=== PATIENT | male | born 1970 | race Caucasian/White ===

== ENCOUNTER 2020-08-21 15:11 | Emergency (ER) | payer OTHER ==
--- NOTE | 2020-08-21 15:42 | PDOC ---
History of Present Illness - General Chief Complaint: Pain Stated Complaint: ABDOMINAL STRAIN Time Seen by Provider: 08/21/20 15:36 History Source: Patient Exam Limitations: No Limitations - History of Present Illness Initial Comments: 08/21/20 15:37 49 yo male h/o renal ca, partial nephrectomy 10 yrs ago, htn borderline diabetes, chronic back pain depression here today c/o abd pain. pt states he was at physical therapy and was straining, stretching his back. felt bulge left umbilicus. since then has been hurting. no bulge currently. has not had a bowel. movement in several days. nausea, no vomiting. no f/c no other complaints. pain constatnt. Past History - Medical History Allergies/Adverse Reactions: Allergies Allergy/AdvReac Type Severity Reaction Status Date / Time codeine Allergy Mild Itching Verified 02/05/20 18:02 Home Medications: Ambulatory Orders Amlodipine Besylate [Norvasc] 10 mg PO DAILY 11/25/11 Omeprazole 40 mg PO DAILY 11/25/11 Rosuvastatin Calcium [Crestor] 10 mg PO DAILY #0 tablet 11/27/11 Aspirin 81 mg PO DAILY 02/05/20 Metoprolol Succinate [Toprol XL -] 100 mg PO DAILY 02/05/20 Mirtazapine 15 mg PO HS 02/05/20 Ciprofloxacin [Cipro -] 500 mg PO Q12H #28 tablet 08/21/20 metroNIDAZOLE [Flagyl -] 500 mg PO TID 14 Days #42 tablet 08/21/20 GI Disorders: Yes (ACID REFLUX) HTN: Yes - Psycho-Social/Smoking History Smoking Status: No Smoking History: Never smoked Have you smoked in the past 12 months: No Number of Cigarettes Smoked Daily: 0 Review of Systems - Review of Systems Constitutional: No: Chills, Diaphoresis, Fever HEENTM: No: Eye Pain, Blurred Vision, Tearing Respiratory: No: Cough, Orthopnea, Shortness of Breath Cardiac (ROS): No: Chest Pain, Edema ABD/GI: Yes: Nausea. No: Constipated, Diarrhea : No: Burning, Dysuria, Discharge Musculoskeletal: No: Back Pain, Gout, Joint Pain Neurological: No: Headache, Numbness, Paresthesia All Other Systems: Reviewed and Negative *Physical Exam - Physical Exam 08/21/20 15:43 awake alert lungs clear bilat heart rrr no mrg abd soft obese. left periumbilical area. mild ttp. no palp hernia border. no rebound no guarding. ext wwp. no edema. nuero alert oriented x 3. ED Treatment Course - LABORATORY CBC & Chemistry Diagram: 08/21/20 16:00 08/21/20 15:46 Medical Decision Making - Medical Decision Making 08/21/20 15:44 49 yo male with h/o renal ca, s/p partial nephrectomy, htn depression here with llq pain, bulging. differential hernia, fat hernia, diverticulitis, constipation. plan ct a/p without iv contrast due to h/o renal ca, labs ivf. 08/21/20 19:26 Patient with noted hepatic cysts will recommend GI follow-up also noted to have concerns for mild diverticulitis no visualized hernia. Will discharge patient with Cipro and Flagyl and referral for GI follow-up for both his hepatic cyst and possible diverticulitis is consistent with his exam due to the concern for bulging we also be given referral for follow-up with general surgery given the number for Dr. Hampton Discharge - Discharge Information Problems reviewed: Yes Clinical Impression/Diagnosis: Hepatic cyst, Diverticulitis Condition: Improved Disposition: HOME - Admission No - Additional Discharge Information Prescriptions: Ciprofloxacin [Cipro -] 500 mg PO Q12H #28 tablet - Follow up/Referral Referrals: Donell Lord MD [Staff Physician] - Fredi Hampton MD [Staff Physician] - - Patient Discharge Instructions Patient Printed Discharge Instructions: Diverticulitis Additional Instructions: Your CAT scan today shows 2 cysts on your liver. These are likely benign howev er will require follow-up with your karate instructor. If you do not have a karate instructor can follow-up with Dr. Lord see referral information and call to schedule an appointment to be seen within 1 to 2 weeks. You should also note that your CAT scan shows concerns for possible diverticulitis and infection in your colon this could explain your pain. For this you should take ciprofloxacin 500 mg twice daily for 14 days. In addition you should take Flagyl 500 mg 3 times daily for 14 days. You should not drink alcohol while taking Flagyl as it can cause serious adverse reaction just of nausea and vomiting. Return for fevers chills vomiting or worsening pain or any other concerns. Your CAT scan today does not show a hernia however if you have recurrent bulging or concerns then you should follow-up with a primary care surgeon see referral for Dr. Hampton and call to schedule a follow-up appointment. In addition you should follow-up with your primary care doctor please call to be seen within 1 to 2 weeks - Post Discharge Activity
[2020-08-21] MEDS ORDERED: ACETAMINOPHEN 1000 MG/100 ML VIAL (NON FORMULARY) IVPB ONE (15:46)
[2020-08-21] MEDS ORDERED: SODIUM CHLORIDE 0.9% 1000 ML INFUS.BAG IV ONE (15:46)
[2020-08-21 15:53] VITALS: TEMP 98.4; BMI 35.9
[2020-08-21 16:13] LABS: BASO % 4.4 % (0-2.0); EOS % 3.4 % (0-4.5); HEMATOCRIT 43.9 % (35.4-49); HEMOGLOBIN 14.4 GM/dl (11.7-16.9); MCHC 32.8 g/dl (32.0-35.9); MEAN CELL VOLUME 79.1 fl (80-96); MEAN PLT VOLUME 8.2 fl (7.5-11.1); MONO % 10.8 % (3.8-10.2); NEUT % 63.4 % (42.8-82.8); PLATELET COUNT 334 K/MM3 (134-434); RBC 5.55 M/mm3 (4.00-5.60); RDW 16.6 % (11.9-15.9); WHITE BLOOD COUNT 7.1 K/mm3 (4.0-10.8)
[2020-08-21 16:41] LABS: BILIRUBIN,TOTAL 0.6 mg/dl (0.2-1); CALCIUM 8.8 mg/dl (8.5-10); POTASSIUM 4.5 mmol/L (3.5-5.1)
[2020-08-21 17:29] VITALS: BP 150/106; PULSE 71
[2020-08-21] MEDS ORDERED: ACETAMINOPHEN INJECTION 100 ML IVPB ONE (18:28)
[2020-08-21] MEDS ORDERED: ACETAMINOPHEN 500 MG TABLET (FP) ONE (19:18)
[2020-08-21] MEDS ORDERED: CIPROFLOXACIN 500 MG TABLET (RESTRICTED TO ID) PO ONE (19:31)
[2020-08-21] MEDS ORDERED: metroNIDAZOLE 500 MG TABLET PO ONE (19:31)
[2020-08-21] MEDS ORDERED: metroNIDAZOLE 250 MG TABLET ONE (19:33)
[2020-08-21] MEDS ORDERED: CIPROFLOXACIN 250 MG TABLET (RESTRICTED TO ID) PO ONE (19:33)
[2020-08-21] MEDS ORDERED: ACETAMINOPHEN 500 MG TABLET (FP) PO ONE (19:39)
== END 2020-08-21 19:41 | disposition home or self-care (01) ==
LOC: FER 15:11
DX: Q44.6 Cystic disease of liver (principal); K57.00 Diverticulitis of small intestine with perforation and abscess without bleeding
CPT/HCPCS: 36415; 74176-TC; 80053; 81003; 83605; 85025; 99284-25

== ENCOUNTER 2020-08-28 10:49 | Emergency (ER) | payer OTHER ==
[2020-08-28 10:55] VITALS: TEMP 98.4; BMI 35.9
--- OUTSIDE RECORDS SUMMARY | 2020-08-28 11:03 | XMS ---
:1970 Author Organization [facility] Care Team Providers Name Role Phone [facility] Unavailable Unavailable MD GENNA Unavailable Unavailable Danyel Unavailable [phone] RENATO RACHEL Unavailable Unavailable ED STAFF PHYSICIAN Unavailable Unavailable Silvino MAGNETIC PROSPECTING OPERATOR, MAGNETIC PROSPECTING OPERATOR Unavailable [phone] Silvino MAGNETIC PROSPECTING OPERATOR, MAGNETIC PROSPECTING OPERATOR Unavailable [phone] MD PILLO Unavailable Unavailable ALTON PELLETIER Unavailable Unavailable Елена-Pollock Unavailable [phone] Елена-Pollock Unavailable [phone] Lorin GOVEA Unavailable Unavailable LON BRIONES Unavailable Unavailable MD ADAM Unavailable Unavailable SILVINO Martinez Unavailable Unavailable MD NOLA Unavailable Unavailable JES Unavailable Unavailable JIMBO MS/ATR-BC Unavailable Unavailable Renato Unavailable [phone] Renato Unavailable [phone] Re-disclosure Warning The records that you are about to access may contain information from federally- assisted alcohol or drug abuse programs. If such information is present, then the following federally mandated warning applies: This information has been disclosed to you from records protected by federal confidentiality rules (42 CFR part 2). The federal rules prohibit you from making any further disclosure of this information unless further disclosure is expressly permitted by the written consent of the person to whom it pertains or as otherwise permitted by 42 CFR part 2. A general authorization for the release of medical or other information is NOT sufficient for this purpose. The Federal rules restrict any use of the information to criminally investigate or prosecute any alcohol or drug abuse patient.The records that you are about to access may contain highly sensitive health information, the redisclosure of which is protected by Article 27-F of the [facility] Public Health law. If you continue you may haveaccess to information: Regarding HIV / AIDS; Provided by facilities licensed or operated by the [facility] Office of Mental Health; or Provided by the [facility] Office for People With Developmental Disabilities. If such information is present, then the following [facility] mandated warning applies: This information has been disclosed to you from confidential records which are protected by state law. State law prohibits you from making any further disclosure of this information without the specific written consent of the person to whom it pertains, or as otherwise permitted by law. Any unauthorized further disclosure in violation of state law may result in a fine or snf sentence or both. A general authorization for the release of medical or other information is NOT sufficient authorization for further disclosure. Encounters Encounter Providers Location Date Indications Data Source(s ) Outpatient Attender: [address] 08/21/2020 [facility] ([facility] 04:21:35 PM [facility] EDT [facility]) Patient admitted. Attender: YOSVANY [place] [facility] 07/05/2020 04:07:00 NEXTGEN ([facility] EDT - 07/05/2020 [facility] 04:07:00 PM EDT Center) Outpatient Attender: CN9 06/17/2020 11:46:24 G SI ([facility]) Patient admitted. OutpatientOFFICE/OUTPATIENT Attender: YOSVANY Mental 06/06/2020 [facility] VISIT, EST [facility] 05:10:00 PM ([facility] 06/06/2020 Medical 05:10:00 PM Center) EDT Outpatient Attender: STV 05/23/2020 [facility] 09:[facility]:00 AM Nancy DASAdmitter: [facility] Outpatient Attender: CNR9 05/17/2020 [facility] 09:45:50 AM ([facility] e) Patient admitted. OutpatientOFFICE/OUTPATIENT Attender: MAGNETIC PROSPECTING OPERATOR Mental 05/10/2020 NEXTGEN VISIT, FÉLIX Schultzig Silvino MAGNETIC PROSPECTING OPERATOR Health 04:13:00 PM ([facility] EDT - [place] 05/10/2020 Medical 04:13:00 PM Center) EDT Outpatient Attender: JAY STDavis 05/07/2020 [facility] WASSERMANAdmit 07:05:00 [facility] ter: [facility] EDT - [facility] 06/02/2020 04:22:00 PM EDT Patient discharged. Outpatient Attender: LEILA [facility] 04/26/2020 09:42:00 AM [facility] REIDAdmitter: MARC EDT - 05/22/2020 [facility] 04:32:00 PM EDT Patient discharged. Attender: YOSVANY [place] [facility]2020 [facility] MAGNETIC PROSPECTING OPERATOR Clinic PM EDT - 04/24/2020 [facility] 05:20:00 PM EDT Center) [facility] 04/13[facility]2020 08:40[facility]00 [facility] PM EDT - 04/25/2020 joycelyn CORREIA [facility]ORD 10:41:00 PM EDT Patient discharged. Outpatient [facility] 04/13/2020 06:58:00 PM EDT - [address] [place] [address] 10:33:00 PM EDT Patient discharged. Attender: [facility] 04/05/2020 SHARADG EN ([facility] 09:05:00 AM EDT - [facility]on s 04/05/2020 Medical 09:05:00 AM EDT Center) OutpatientOFFICE/OUTP Attender: YOSVANY Bryson 04/04/2020 VALERY ([facility]LIX Silvino NPAttender: Clinic 10:46:00 AM EDT - [place] Nahun Montaño 04/04/2020 Medical 10:46:00 AM EDT Center) Attender: [facility] 03/20/2020 SHARADGE N ([facility] 03:12:00 PM EDT - [place] [facility] 03/20/2020 Medical 03:12:00 PM EDT Center) Attender: [facility] 03/13/2020 NEXTG EN ([facility] 03:07:00 PM EDT - [place] [facility] 03/13/2020 Medical 03:07:00 PM EDT Center) OutpatientOFFICE/OUTP Attender: YOSVANY [facility] 03/13/2020 NEXTGEN ([facility] ATIENT VISIT, FÉLIX [facility] NPAttender: Clinic 02:47:00 PM EDT - [place] Nahun Edenmarty Montaño 03/13/2020 Medical 02:47:00 PM EDT Center) Individual Attender: [facility] 03/13/2020 NEXTGE N ([facility] ([address] [facility] 01:06:00 PM EDT - [place] Min) 03/13/2020 Medical 01:06:00 PM EDT Center) Individual Attender: [facility] 02/14/2020 NEXTGE N ([facility] ([address] [facility] 01:25:00 PM EDT - [place] Min) 02/14/2020 Medical 01:25:00 PM EDT Center) Individual Attender: [facility] 02/08/2020 NEXTGE N ([facility] ([address] [facility] 01:36:00 PM EDT - [place] Min) 02/08/2020 Medical 01:36:00 PM EDT Center) Outpatient Attender: CNR9 02/04/2020 GSI ([facility] 06:31:26 AM EDT [facility]) Patient admitted. Attender: [facility] 02/03/2020 NEXTG EN ([facility] 09:32:00 AM EDT - [place] [facility] 02/03/2020 Medical 09:32:00 AM EDT Center) OutpatientOFFICE/OUTP Attender: YOSVANY [facility] 02/01/2020 VALERY ([facility] ATIENT VISIT, FÉLIX [facility] NPAttender: Clinic 03:23:00 PM EDT - [place] Nahun Woostermarty Montaño 02/01/2020 Medical 03:23:00 PM EDT Center) Individual Attender: [facility] 01/31/2020 NEXTGE N ([facility] ([address] [facility] 03:30:00 PM EDT - [place] Min) 01/31/2020 Medical 03:30:00 PM EDT Center) Individual Attender: [facility] 01/24/2020 NEXTGE N ([facility] ([address] [facility] 04:12:00 PM EDT - [place] Min) 01/24/2020 Medical 04:12:00 PM EDT Center) Individual Attender: [facility] 01/17/2020 NEXTGE N ([facility] ([address] [facility] 04:08:00 PM EST - [place] Min) 01/17/2020 Medical 04:08:00 PM EST Center) Attender: [facility] 01/14/2020 NEXTG EN ([facility] 03:16:00 PM EST - [place] [facility] 01/14/2020 Medical 03:16:00 PM EST Center) OutpatientOFFICE/OUTP Attender: [facility] 01/14/2020 NEXTGEN ([facility] Silvino NPAttender: Clinic 01:47:00 PM EST - [place] [facility] Danyel 01/14/2020 Medical 01:47:00 PM EST Center) Attender: [facility] 01/14/2020 NEXTG EN ([facility] 09:04:00 AM EST - [place] [facility] 01/14/2020 Medical 09:04:00 AM EST Center) Individual Attender: [facility] 01/10/2020 NEXTGE N ([facility] [facility] 03:04:00 PM EST - [place] Min) 01/10/2020 Medical 03:04:00 PM EST Center) Individual Attender: [facility] 01/03/2020 NEXTGE N ([facility] [facility] 02:24:00 PM EST - [place] Min) 01/03/2020 Medical 02:24:00 PM EST Center) Individual Attender: [facility] 12/27/2019 NEXTGE N ([facility] ([address] [facility] 02:27:00 PM EST - [place] Min) 12/27/2019 Medical 02:27:00 PM EST Center) Individual Attender: [facility] 12/24/2019 NEXTGE N ([facility] ([address] [facility] 04:06:00 PM EST - [place] Min) 12/24/2019 Medical 04:06:00 PM EST Center) Attender: [facility] 12/17/2019 NEXTG EN ([facility] 03:54:00 PM EST - [place] 12/17/2019 Medical 03:54:00 PM EST Center) Individual Attender: [facility] 12/17/2019 NEXTGE N ([facility] [facility] 01:05:00 PM EST - [place] Min) 12/17/2019 Medical 01:05:00 PM EST Center) OutpatientOFFICE/OUTP Attender: YOSVANY Montenegro [facility] 12/17/2019 VALERY ([facility] ATIENT VISIT, EST Silvino NPAttender: Clinic 12:55:00 PM EST - [place] Mccall Danyel 12/17/2019 Medical 12:55:00 PM EST Center) Outpatient Attender: SOMMER 12/14/2019 GSI (Com[facility] jacquelyn [facility] 04:38:[address] [facility]) Patient admitted. Outpatient Attender: CN9 [facility] 12/14/2019 03:36:18 PM [facility] ([facility]) Patient admitted. Attender: [facility] 12/03/2019 SHARAD EN ([facility] 03:04:00 PM EST - [place] 12/03/2019 Medical 03:04:00 PM EST Center) OutpatientOFFICE/OUTP [facility]: [facility] Silvino NPAttender: Clinic 11:06:00 AM EST - [place] Mccall Danyel 12/03/2019 Medical 11:06:00 AM EST Center) Individual Attender: [facility] 12/02/2019 ELISE N ([facility] ([address] [facility] 05:33:00 PM EST - [place] Min) 12/02/2019 Medical 05:33:00 PM EST Center) Attender: [facility] 11/26/2019 NEXT EN ([facility] 03:38:00 PM EST - [place] 11/26/2019 Medical 03:38:00 PM EST Center) Attender: [facility] 11/26/2019 NEXTGE N [facility] 02:16:00 PM EST - [place] 11/26/2019 Medical 02:16:00 PM EST Center) OutpatientOFFICE/OUTP Attender: YOSVANY Montenegro [facility] ATIENT VISIT, EST Silvino NPAttender: Clinic 03:33:00 PM EST - [place] Mccall Danyel 11/19/2019 Medical 03:33:00 PM EST Center) Attender: Mental Health 11/19/2019 NEXTGEN ([facility] 03:15:00 PM [facility] Елена-Pollock 11/19/2019 Medical 03:15:00 PM EST Center) Outpatient Attender: MONI Villavicencio 11/19/2019 [facility] federico SILVINO MONTENEGRO 10:05:00 AM [facility] AAdmitter: MONI Martinez 11/19/2019 [facility] 12:00:00 AM [facility] 11/05/2019 12:00:00 AM EST Individual Attender: [facility] 11/16/2019 NEXTGE N ([facility] Psychotherapy ([facility] 11:44:00 AM [facility] Min) 11/16/2019 Medical 11:44:00 AM [facility] Center) Psychiatric Attender: [facility] 11/12/2019 PER EN ([facility] Interview [facility] 03:11:00 PM [facility] (45+ Min) 11/12/2019 Medical 03:11:00 PM EST Center) Outpatient Attender: TABITHA Villavicencio 11/09/2019 [facility] RENATO 10:05:00 AM [facility] YENNIAAdmitter: TABITHA RACHEL Attender: [facility] 11/09/2019 ELISE N ([facility] 10:05:00 AM [facility] 11/09/2019 Medical 10:05:00 AM [facility] Center) 11/09/2019 [facility] 12:00:00 AM [facility] 11/05/2019 12:00:00 AM [facility] Inpatient Attender: ANSELMO H-HAL2 10/29/2019 [facility] cris FORREST 09:03:00 AM [facility] ANSELMOAttender: 11/05/2019 STAFF ED STAFF 12:45:00 PM EST PHYSICIANAdmitter: ANSELMO BRIONESReferrer: ANSELMO BRIONES Patient discharged. Emergency H 08/23/2019 10:42:00 AM EDT - [address] [place] [address] 03:24:00 PM EDT Patient discharged. Medications Medication Brand Start Product Dose Route Administrative Pharmacy at Indications Reaction Description Data Name Date Form Instructions Instructions Source(s) Zolpidem Ambien ORAL complet Ambien - 10 [facility] tartrate 10 - 10 2019 Table ed MG ORAL [facility] Oral MG 12:00: t Tablet Hospital Tablet ORAL 00 AM [Ambien] Tablet EDT aripiprazol ARIPip ORAL complet ARIPip razole [facility] e 10 MG razole 2019 Table ed - 10 MG ORAL [facility] Oral Tablet - 10 12:00: t Tablet Hosp ital MG 00 AM ORAL EDT Tablet Trazodone traZOD . ORAL complet traZODon e [facility] Hydrochlori one 2019 Table ed hydrochlorid [facility] de 150 MG hydroc 12:00: t e - 150 MG Hospital Oral Tablet hlorid 00 AM ORAL Table t e - EDT 150 MG ORAL Tablet aripiprazol ARIPip ORAL complet ARIPip razole [facility] e 10 MG razole 2019 Table ed - 10 MG ORAL [facility] Oral Tablet - 10 12:00: t Tablet Hosp ital MG 00 AM ORAL EDT Tablet Trazodone traZOD . ORAL complet traZODon e [facility] Hydrochlori one 2019 Table ed hydrochlorid [facility] de 150 MG hydroc 12:00: t e - 150 MG Hospital Oral Tablet hlorid 00 AM ORAL Table t e - EDT 150 MG ORAL Tablet aripiprazol ARIPip ORAL complet ARIPip razole [facility] e 10 MG razole 2019 Table ed - 10 MG ORAL [facility] Oral Tablet - 10 12:00: t Tablet Hosp ital MG 00 AM ORAL EDT Tablet aripiprazol Abilif ORAL complet Abilif y - 5 [facility] e 5 MG Oral y - 5 2019 Table ed MG ORAL Leobardo cents Tablet MG 12:00: t Tablet Hospital [Abilify] ORAL 00 AM Tablet EDT Trazodone traZOD . ORAL complet traZODon e [facility] Hydrochlori one 2019 Table ed hydrochlorid [facility] de 150 MG hydroc 12:00: t e - 150 MG Hospital Oral Tablet hlorid 00 AM ORAL Table t e - EDT 150 MG ORAL Tablet Trazodone traZOD . ORAL complet traZODon e [facility] Hydrochlori one 2019 Table ed hydrochlorid [facility] de 150 MG hydroc 12:00: t e - 150 MG Hospital Oral Tablet hlorid 00 AM ORAL Table t e - EDT 150 MG ORAL Tablet Naproxen Naprox ORAL complet Naproxen - [facility] 500 MG Oral en - 2019 Table ed 500 MG ORAL [facility] Tablet 500 MG 12:00: t Tablet Hospita l ORAL 00 AM Tablet EDT Trazodone traZOD ORAL complet traZODon e [facility] Hydrochlori one 2019 Table ed hydrochlorid [facility] de 150 MG hydroc 12:00: t e - 150 MG Hospital Oral Tablet hlorid 00 AM ORAL Table t e - EDT 150 MG ORAL Tablet Trazodone traZOD ORAL complet traZODon e [facility] Hydrochlori one 2019 Table ed hydrochlorid [facility] de 50 MG hydroc 12:00: t e - 50 MG Ho spital Oral Tablet hlorid 00 AM ORAL Table t e - 50 EDT MG ORAL Tablet Amlodipine amLODI 04/24/ ORAL complet Sa int 10 MG Oral [place] 2019 ed [facility] Tablet Besyla 12:00: Hospital te - 00 AM 10 MG EDT ORAL Tablet Mirtazapine Remero ORAL active mirtaza pine NEXTGEN 15 MG Oral n 2019 {tabl 15 MG Oral (S aint Tablet mg 12:00: et} Tablet [place] [Remeron] tablet 00 AM [Remeron] Me dical Remeron 15 EDT Center) mg tablet duloxetine Cymbal ORAL active duloxeti ne NEXTGEN 60 MG ta 60 2019 {caps 60 MG (Saint Delayed mg 12:00: ule} Delayed [place] Release capsul 00 AM Release Oral M edical Oral e,[place] EDT Capsule Center) Capsule yed [Cymbalta] [Cymbalta] releas Cymbalta 60 e mg capsule,del ayed release Mirtazapine Remero ORAL complet Mirtaz apine NEXTGEN 15 MG Oral n 15 2019 {tbl} ed 15 MG Oral (S aint Tablet mg 12:00: Tablet [place] [Remeron] tablet 00 AM [Remeron] Me dical Remeron 15 EDT Center) mg tablet duloxetine Cymbal ORAL complet duloxet ine NEXTGEN 60 MG ta 60 2019 {caps ed 60 MG (Saint Delayed mg 12:00: ule} Delayed [place] Release capsul 00 AM Release Oral M edical Oral e,[place] EDT Capsule Center) Capsule yed [Cymbalta] [Cymbalta] releas Cymbalta 60 e mg capsule,del ayed release duloxetine Cymbal ORAL complet duloxet ine NEXTGEN 60 MG ta 60 2019 {caps ed 60 MG (Saint Delayed mg 12:00: ule} Delayed [place] Release capsul 00 AM Release Oral M edical Oral e,[place] EDT Capsule Center) Capsule yed [Cymbalta] [Cymbalta] releas Cymbalta 60 e mg capsule,del ayed release Mirtazapine Remero ORAL complet Mirtaz apine NEXTGEN 15 MG Oral n 15 2019 {tbl} ed 15 MG Oral (S aint Tablet mg 12:00: Tablet [place] [Remeron] tablet 00 AM [Remeron] Wa dical Remeron 15 EDT Center) mg tablet duloxetine Cymbal ORAL complet duloxet ine NEXTGEN 60 MG ta 60 2019 {caps ed 60 MG (Saint Delayed mg 12:00: ule} Delayed [place] Release capsul 00 AM Release Oral M edical Oral e,[place] EST Capsule Center) Capsule yed [Cymbalta] [Cymbalta] releas Cymbalta 60 e mg capsule,del ayed release Trazodone trazod ORAL complet take 1 N EXTGEN Hydrochlori one 2019 {tbl} ed tablet by (S aint de 100 MG 100 mg 12:00: oral route [place] Oral Tablet tablet 00 AM every Medi [facility] trazodone EST bedtime Center) 100 mg after meals tablet aripiprazol Abilif ORAL complet aripip razole NEXTGEN e 10 MG y 10 2019 {tbl} ed 10 MG Oral (Chito t Oral Tablet mg 12:00: Tablet [facility] [Abilify] tablet 00 AM [Abilify] Me dical Abilify 10 EST Center) mg tablet Mirtazapine Remero ORAL complet Mirtaz apine NEXTGEN 15 MG Oral n 15 2019 {tbl} ed 15 MG Oral (S aint Tablet mg 12:00: Tablet [place] [Remeron] tablet 00 AM [Remeron] Me dical Remeron 15 EST Center) mg tablet aripiprazol Abilif ORAL complet aripip razole NEXTGEN e 10 MG y 10 2019 {tbl} ed 10 MG Oral (Chito t Oral Tablet mg 12:00: Tablet [place] [facility] [Abilify] tablet 00 AM [Abilify] Me dical Abilify 10 EST Center) mg tablet duloxetine Cymbal ORAL complet duloxet ine NEXTGEN 60 MG ta 60 2019 {caps ed 60 MG ([facility] Delayed mg 12:00: ule} Delayed [place] Release capsul 00 AM Release Oral M edical Oral e,[place] EST Capsule Center) Capsule yed [Cymbalta] [Cymbalta] releas Cymbalta 60 e mg capsule,del ayed release duloxetine Cymbal ORAL complet duloxet ine NEXTGEN 60 MG ta 60 2019 {caps ed 60 MG (Saint Delayed mg 12:00: ule} Delayed [place] Release capsul 00 AM Release Oral M edical Oral e,[place] EST Capsule Center) Capsule yed [Cymbalta] [Cymbalta] releas Cymbalta 60 e mg capsule,del ayed release aripiprazol Abilif ORAL complet aripip razole NEXTGEN e 10 MG y 10 2019 {tbl} ed 10 MG Oral (Chito t Oral Tablet mg 12:00: Tablet [place] [facility] [Abilify] tablet 00 AM [Abilify] Me dical Abilify 10 EST Center) mg tablet Mirtazapine Remero ORAL complet Mirtaz apine NEXTGEN 15 MG Oral n 15 2019 {tbl} ed 15 MG Oral (S aint Tablet mg 12:00: Tablet [place] [Remeron] tablet 00 AM [Remeron] Me dical Remeron 15 EST Center) mg tablet duloxetine Cymbal ORAL complet duloxet ine NEXTGEN 60 MG ta 60 2019 {caps ed 60 MG ([facility] Delayed mg 12:00: ule} Delayed [place] Release capsul 00 AM Release Oral M edical Oral e,[place] EST Capsule Center) Capsule yed [Cymbalta] [Cymbalta] releas Cymbalta 60 e mg capsule,del ayed release aripiprazol Abilif . ORAL complet aripip razole NEXTGEN e 10 MG y 10 2019 {tbl} ed 10 MG Oral (Chito t Oral Tablet mg 12:00: Tablet [place] phs [Abilify] tablet 00 AM [Abilify] Me dical Abilify 10 EST Center) mg tablet duloxetine Cymbal ORAL complet duloxet ine NEXTGEN 30 MG ta 30 2019 {caps ed 30 MG ([facility] Delayed mg 12:00: ule} Delayed [place] Release capsul 00 AM Release Oral M edical Oral e,[place] EST Capsule Center) Capsule yed [Cymbalta] [Cymbalta] releas Cymbalta 30 e mg capsule,del ayed release Medication administered onsite duloxetine 60 MG Cymbalta 60 mg 11/19/2019 1.00 ORAL complet ed duloxetine NEXTGEN Delayed Release capsule,delayed 12:00:00 AM {capsule} 60 MG (Saint Oral Capsule release EST Delayed J osephs [Cymbalta] Release Medica l Cymbalta 60 mg Oral Cente r) capsule,delayed Capsule release [Cymbalta] aripiprazole 10 Abilify 10 mg 11/19/2019 1.00 {tbl} ORAL completed aripiprazol NEXTGEN MG Oral Tablet tablet 12:00:00 AM e 10 MG (Saint [Abilify] EST Oral Tablet [facility] Abilify 10 mg [Abilify] M edical tablet Center) Naltrexone naltrexone 50 mg 11/12/2019 1.00 ORAL active take 1 NEXTGEN hydrochloride 50 tablet 12:00:00 AM {tablet} tablet by (Saint MG Oral Tablet EST oral route [place] naltrexone 50 mg every da y Medical tablet Center) aripiprazole 10 Abilify 10 mg 11/12/2019 1.00 {tbl} ORAL completed aripiprazol NEXTGEN MG Oral Tablet tablet 12:00:00 AM e 10 MG (Saint [Abilify] EST Oral Tablet Georges ephs Abilify 10 mg [Abilify] M edical tablet Center) duloxetine 30 MG Cymbalta 30 mg 11/12/2019 1.00 ORAL complet ed duloxetine NEXTGEN Delayed Release capsule,delayed 12:00:00 AM {capsule} 30 MG (Saint Oral Capsule release EST Delayed J osephs [Cymbalta] Release Medica l Cymbalta 30 mg Oral Cente r) capsule,delayed Capsule release [Cymbalta] Amlodipine 10 MG amlodipine 10 mg 11/12/2019 1.00 ORAL activ e take 1 NEXTGEN Oral Tablet tablet 12:00:00 AM {tablet} tablet by ( amlodipine 10 mg EST oral rou te [place] tablet every day Medical Center) 24 HR metoprolol metoprolol 11/12/2019 1.00 ORAL active take 1 NEXTGEN succinate 100 MG succinate ER 100 12:00:00 AM {tablet} tablet by ( Extended Release mg EST oral rou te [place] Oral Tablet tablet,extended ev katharine Medical metoprolol release 24 hr Center) succinate ER 100 mg tablet,extended release 24 hr Omeprazole 40 MG omeprazole 40 mg 11/12/2019 1.00 ORAL activ e take 1 NEXTGEN Delayed Release capsule,delayed 12:00:00 AM {capsule} capsule by ( Oral Capsule release EST oral rout e [place] omeprazole 40 mg every da y Medical capsule,delayed before a Center) release meal Insurance Providers Payer name Policy type Policy ID Covered Covered republican's Policy P nathan / Coverage republican ID relationship to [place] Inf ormation type [facility] [facility] [id number] HEALTH NON CAP SELF PAY 0000 Self 0000 MEDICAID OP [id number] Self [id number] [facility] [id number] Self [id number] CARE SELF PAY 0000 Self 0000 MEDICAID OP [id number] Self [id number] [facility] COL[facility]EN [id number] Self [id number] CARE SELF PAY [id number] Self [id number] MEDICAID INP [id number] Self [id number] W [id number] [facility] COL[facility]EN [id number] Self [id number] CARE COLLEEN CARE W [id number] 01 [id number] [place] W [id number] O O X F O R D O [id number] O X F O R D O [id number] O HEALTH O 02 REPUBLIC Problems, Conditions, and Diagnoses Code Display Name Description Problem Type Effective Data Dates Source(s) [id number] Severe major Severe major Problem 11/12/2019 NEXTGEN depression, depression, 12:00:00 AM ( single episode single episode [facility]) F32.2 Major depressive MAJOR DEPRESSV Diagnosis 11/19/2019 Chito t disorder, single DISORD, SINGLE 10:05:00 AM [facility] episode, severe EPSD, SEV W/O EST Medica l without psychotic PSYCH FEATURES Aneta ter features F33.0 Major depressive MAJOR DEPRESSIVE Diagnosis 11/09/2019 Sa int disorder, DISORDER, 10:05:00 AM [facility] recurrent, mild RECURRENT, MILD EST Medi seema Center K21.9 Gastro-esophageal GASTRO-ESOPHAGEAL Diagnosis 11/05/2019 reflux disease REFLUX DISEASE 12:45:00 PM [facility] without WITHOUT EST Medical esophagitis ESOPHAGITIS Center I10 Essential ESSENTIAL Diagnosis 11/05/2019 (primary) (PRIMARY) 12:45:00 PM [facility] hypertension HYPERTENSION [facility] M54.9 Dorsalgia, DORSALGIA, Diagnosis 11/05/2019 unspecified UNSPECIFIED 12:45:00 PM [facility] F12.120 Cannabis abuse CANNABIS ABUSE Diagnosis 11/05/2019 [facility] with WITH 12:45:00 PM [facility] intoxication, INTOXICATION, [facility] Medical uncomplicated UNCOMPLICATED Center Z56.0 Unemployment, UNEMPLOYMENT, Diagnosis 11/05/2019 unspecified UNSPECIFIED 12:45:00 PM [facility] F33.3 Major depressive MAJOR DEPRESSV Diagnosis 10/29/2019 [place] t disorder, DISORDER, 09:03:00 AM [facility] recurrent, severe RECURRENT, SEVERE EST Medical with psychotic W PSYCH SYMPTOMS Cent er symptoms F11.20 Opioid OPIOID Diagnosis 08/23/2019 dependence, DEPENDENCE, 10:42:00 AM [facility] uncomplicated UNCOMPLICATED [facility] R10.9 Unspecified UNSPECIFIED Diagnosis 08/23/2019 abdominal pain ABDOMINAL PAIN 10:42:00 AM [facility] E86.0 Dehydration DEHYDRATION Diagnosis 08/23/2019 [facility] 10:42:00 AM [facility] R11.2 Nausea with NAUSEA WITH Diagnosis 08/23/2019 vomiting, VOMITING, 10:42:00 AM [facility] unspecified UNSPECIFIED EDT Medical Center Surgeries/Procedures Procedure Description Date Indications Data Source(s) OFFICE/OUTPATIENT VISIT, 06/06/2020 NEX TGEN ([facility] EST 12:00:00 AM EDT [facility] 06/06/2020 [place]) 12:00:00 AM EDT OFFICE/OUTPATIENT VISIT, 05/10/2020 NEX TGEN ([facility] EST 12:00:00 AM EDT [facility] 05/10/2020 [place]) 12:00:00 AM EDT Psychotherapy (30 Mins) 04/04/2020 NEXT GEN ([facility] W/ E&M 12:00:00 AM EDT [facility] 04/04/2020 [place]) 12:00:00 AM EDT OFFICE/OUTPATIENT VISIT, 04/04/2020 NEX TGEN ([facility] EST 12:00:00 AM EDT [facility] 04/04/2020 [place]) 12:00:00 AM EDT Individual Psychotherapy 03/13/2020 NEX TGEN ([facility] (30 Min) 12:00:00 AM EDT [facility] 03/13/2020 [place]) 12:00:00 AM EDT OFFICE/OUTPATIENT VISIT, 03/13/2020 NEX TGEN ([facility] EST 12:00:00 AM EDT [facility] 03/13/2020 [place]) 12:00:00 AM EDT OFFICE/OUTPATIENT VISIT, 03/13/2020 NEX TGEN ([facility] EST 12:00:00 AM EDT [facility] 03/13/2020 [place]) 12:00:00 AM EDT Individual Psychotherapy 02/14/2020 NEX TGEN (Saint (45 Min) 12:00:00 AM EDT [facility] 02/14/2020 [place]) 12:00:00 AM EDT Individual Psychotherapy 02/08/2020 NEX TGEN ([facility] (30 Min) 12:00:00 AM EDT [facility] 02/08/2020 [place]) 12:00:00 AM EDT Psychotherapy (30 Mins) 02/01/2020 NEXT GEN ([facility] W/ E&M 12:00:00 AM EDT [facility] 02/01/2020 [place]) 12:00:00 AM EDT OFFICE/OUTPATIENT VISIT, 02/01/2020 NEX TGEN ([facility] EST 12:00:00 AM EDT [facility] 02/01/2020 [place]) 12:00:00 AM EDT Individual Psychotherapy 01/31/2020 NEX TGEN ([facility] (30 Min) 12:00:00 AM EDT [facility] - 01/31/2020 [place]) 12:00:00 AM EDT Individual Psychotherapy 01/24/2020 NEX TGEN ([facility] (30 Min) 12:00:00 AM EDT [facility] - 01/24/2020 [place]) 12:00:00 AM EDT Individual Psychotherapy 01/17/2020 NEX TGEN ([facility] (30 Min) 12:00:00 AM EST [facility] - 01/17/2020 [place]) 12:00:00 AM EST OFFICE/OUTPATIENT VISIT, 01/14/2020 NEX TGEN ([facility] EST 12:00:00 AM EST [facility] 01/14/2020 [place]) 12:00:00 AM EST Individual Psychotherapy 01/10/2020 NEX TGEN ([facility] (30 Min) 12:00:00 AM EST [facility] 01/10/2020 [place]) 12:00:00 AM EST Individual Psychotherapy 01/03/2020 NEX TGEN ([facility] (30 Min) 12:00:00 AM EST [facility] 01/03/2020 [place]) 12:00:00 AM EST Individual Psychotherapy 12/27/2019 NEX TGEN ([facility] (30 Min) 12:00:00 AM EST [facility] 12/27/2019 [place]) 12:00:00 AM EST Individual Psychotherapy 12/24/2019 NEX TGEN ([facility] (30 Min) 12:00:00 AM EST [facility] 12/24/2019 [place]) 12:00:00 AM EST Psychotherapy (30 Mins) 12/17/2019 NEXT GEN ([facility] W/ E&M 12:00:00 AM EST [facility] 12/17/2019 [place]) 12:00:00 AM EST OFFICE/OUTPATIENT VISIT, 12/17/2019 NEX TGEN ([facility] EST 12:00:00 AM EST [facility] 12/17/2019 [place]) 12:00:00 AM EST Individual Psychotherapy 12/17/2019 NEX TGEN ([facility] (30 Min) 12:00:00 AM EST [facility] 12/17/2019 [place]) 12:00:00 AM EST Psychotherapy (30 Mins) 12/03/2019 NEXT GEN ([facility] W/ E&M 12:00:00 AM EST [facility] - 12/03/2019 [place]) 12:00:00 AM EST OFFICE/OUTPATIENT VISIT, 12/03/2019 NEX TGEN ([facility] EST 12:00:00 AM [facility] 12/03/2019 [place]) 12:00:00 AM EST Individual Psychotherapy 12/02/2019 NEX TGEN ([facility] (30 Min) 12:00:00 AM [facility] 12/02/2019 [place]) 12:00:00 AM EST OFFICE/OUTPATIENT VISIT, 11/19/2019 NEX TGEN ([facility] EST 12:00:00 AM EST [facility] - 11/19/2019 [place]) 12:00:00 AM EST Individual Psychotherapy 11/16/2019 NEX TGEN ([facility] (30 Min) 12:00:00 AM [facility] - 11/16/2019 [place]) 12:00:00 AM EST Psychiatric Diagnostic 11/12/2019 NEXTG EN ([facility] Interview (45+ Min) 12:00:00 AM EST [facility] 11/12/2019 [place]) 12:00:00 AM EST Results ID Date Data Source [id number] 04/14/2020 09:55:00 AM EDT [facility] Name Value Range Interpretation Code Description Data Jaky rce(s) Supporting Document(s ) COV2 [facility] This lab was ordered by [facility] and [facility] Date Data Source LIPID.[id number] 11/02/2019 06:37:00 AM EST [facility] Name Value Range Interpretation Description Data Sup porting Code Source(s) Document(s ) Triglyceride < 150 Above high normal <content Saint [Mass/volume] in styleCode="[facility] Serum or Plasma d">Triglycerid [facility] </content>175 MG/DL H<content styleCode="Libby lics"> (< 150 MG/DL)</conten t> UNK < 100 Above high normal <content Saint styleCode="Franko Julieta d">LDL-Cholest [facility] </content>145 MG/DL H<content styleCode="Libby lics"> (< 100 MG/DL)</conten t> UNK > 60 Below low normal <content Saint styleCode="Franko Julieta d">HDL- Medical Cholesterol Center </content>34 MG/DL L<content styleCode="Libby lics"> (> 60 MG/DL)</conten t> Cholesterol -<200 Above high normal <content [facility] [Mass/volume] in styleCode="Franko Julieta Serum or Plasma d">Cholesterol Medical </content>214 Center MG/DL H<content styleCode="Libby lics"> (-<200 MG/DL)</conten t> ID Date Data Source ChemistrySpecia.[id number] 11/02/2019 06:37:[address] [facility] 0-0500 Name Value Range Interpretation Description Data Sup porting Code Source(s) Document(s ) Folate > 3.0 <content Saint [Mass/volume] styleCode="Franko Julieta in Serum or d">Folic Acid Medical Plasma </content>7.02 Center NG/ML<content styleCode="Libby lics"> (> 3.0 NG/ML)</conten t> Cobalamin 239-931 <content Saint (Vitamin B12) styleCode="Franko Julieta [Mass/volume] d">Vitamin B12 Medical in Serum or </content>613 Center Plasma PG/ML<content styleCode="Libby lics"> (239-931 PG/ML)</conten t> ID Date Data Source CHMROUTINECCDA.[id number] 11/02/2019 06:37:[address] [facility] -0500 Name Value Range Interpretation Code Description Data Supporting Source(s) Document(s ) Folate > 3.0 <content [facility] Julieta [Mass/volum styleCode="Bold Medical e] in Serum ">Folic Acid Center or Plasma </content>7.02 NG/ML<content styleCode="Ital ics"> (> 3.0 NG/ML)</content > ID Date Data Source Hormones.[id number] 10/30/2019 06:48:00 AM [facility] Name Value Range Interpretation Description Data Sup porting Code Source(s) Document(s ) Thyrotropin 0.465-4. <content Saint [Units/volume] 68 styleCode="Franko Julieta in Serum or d">Thyroid Medical Plasma by Stimulating Center Detection Hormone limit <= 0.05 </content>0.60 mIU/L 6 MIU/L<content styleCode="Libby lics"> (0.465-4.68 MIU/L)</conten t> ID Date Data Source CHMROUTINECCDA.[id number] 10/30/2019 06:48:[address] [facility] -0500 Name Value Range Interpretation Code Description Data Jaky rce(s) Supporting Document(s ) UNK 4.2-5.8 Above high normal <content [place] [facility] styleCode="Bold" Medical Cente r >Hemoglobin A1C </content>6.1 % H<content styleCode="Itali cs"> (4.2-5.8 %)</content> ID Date Data Source Urinalysis.[id number] 10/29/2019 10:55:[address] [facility] 0 Name Value Range Interpretation Description Data Sup porting Code Source(s) Document(s ) Color of Urine YELLOW <content Saint styleCode="Franko Julieta d">Color, Medical Urine Center </content>YELL OW <content styleCode="Libby lics"> (YELLOW )</content> UNK CLEAR <content Saint styleCode="Franko Julitea d">Urine Medical Clarity Center </content>JI R <content styleCode="Libby lics"> (CLEAR )</content> Ketones NEGATIVE <content Saint [Mass/volume] styleCode="Franko Julieta in Urine by d">Urine Medical Test strip Ketone Center </content>>=80 MG/DL<content styleCode="Libby lics"> (NEGATIVE MG/DL)</conten t> UNK NEGATIVE <content Saint styleCode="Franko Julieta d">Urine Medical Bilirubin Center </content>MODE RATE <content styleCode="Libby lics"> (NEGATIVE )</content> Glucose NEGATIVE <content Saint [Mass/volume] styleCode="Franko Julieta in Urine by d">Urine Medical Test strip Glucose Center </content>NEGA TIVE MG/DL<content styleCode="Libby lics"> (NEGATIVE MG/DL)</conten t> Specific 1.015-1.02 Above high <content [facility] gravity of 5 normal styleCode="Franko Julieta Urine by Test d">Urine Medical strip Specific Center [place] </content>>= 1.030 H<content styleCode="Libby lics"> (1.015-1.025 )</content> Hemoglobin NEGATIVE <content [facility] [Presence] in styleCode="Franko Julieta Urine by Test d">Urine Blood Medical strip </content>TRAC Center E <content styleCode="Libby lics"> (NEGATIVE )</content> Urobilinogen 0.2-1.0 <content [facility] [Units/volume] styleCode="Franko Julieta in Urine by d">Urine Medical Test strip Urobilinogen Center </content>0.2 MG/DL<content styleCode="Libby lics"> (0.2-1.0 MG/DL)</conten t> pH of Urine by 4.5-8.0 <content [facility] Test strip styleCode="Franko Julieta d">Urine pH Medical </content>6.0 Center <content styleCode="Libby lics"> (4.5-8.0 )</content> Protein NEGATIVE <content [facility] [Mass/volume] styleCode="Franko Julieta in Urine by d">Urine Medical Test strip Protein Center </content>30 MG/DL<content styleCode="Libby lics"> (NEGATIVE MG/DL)</conten t> Nitrite NEGATIVE <content Saint [Presence] in styleCode="Franko Julieta Urine by Test d">Urine Medical strip Nitrite Center </content>NEGA TIVE <content styleCode="Libby lics"> (NEGATIVE )</content> UNK 0-3 <content Saint styleCode="Franko Julieta d">Urine White Medical Blood Cell Center </content>0-3 HPF<content styleCode="Libby lics"> (0-3 HPF)</content> UNK 0-3 <content Saint styleCode="Franko Julieta d">Urine Red Medical Blood Cell Center </content>0-3 HPF<content styleCode="Libby lics"> (0-3 HPF)</content> Leukocyte NEGATIVE <content Saint esterase styleCode="Franko Rendon [Presence] in d">Urine Medical Urine by Test Leukocyte Center strip </content>NEGA TIVE <content styleCode="Libby lics"> (NEGATIVE )</content> ID Date Data Source YAIR.[id number] 10/29/2019 10:55:00 AM EST [facility] -0500 Name Value Range Interpretation Description Data Sup porting Code Source(s) Document(s ) Cannabinoids <content [facility] [Presence] in styleCode="Franko Rendon Urine by Screen d">Cannabinoid Medical method >50 ng/mL s Center </content>PRES UMPTIVE POSITIVE NG/ML (Reference Range: not available)<br/ > ID Date Data Source Liver 10/29/2019 09:55:00 AM EST [facility] Profile.[id number] Name Value Range Interpretation Description Data Sup porting Code Source(s) Document(s ) Aspartate 17-59 <content [facility] aminotransferase styleCode="Bold"> Ayad hs [Enzymatic Aspartate Medical activity/volume] Aminotransferase Center in Serum or Plasma (AST) </content>24 IU/L<content styleCode="Italic s"> (17-59 IU/L)</content> Alkaline 38-126 <content [facility] phosphatase styleCode="Bold"> Julieta [Enzymatic Alkaline Medical activity/volume] Phosphatase (ALP) Cente r in Serum or Plasma </content>81 IU/L<content styleCode="Italic s"> (38-126 IU/L)</content> UNK 0.0-0.3 <content Saint styleCode="Bold"> Julieta Bilirubin, Direct Medical </content>< 0.2 Center MG/DL<content styleCode="Italic s"> (0.0-0.3 MG/DL)</content> Bilirubin.total 0.2-1.3 <content [facility] [Mass/volume] in styleCode="Bold"> Ayad hs Serum or Plasma Bilirubin Total Medical </content>1.1 Center MG/DL<content styleCode="Italic s"> (0.2-1.3 MG/DL)</content> Alanine 7-50 <content [facility] aminotransferase styleCode="Bold"> Ayad hs [Enzymatic Alanine Medical activity/volume] Aminotransferase Center in Serum or Plasma (ALT) </content>18 IU/L<content styleCode="Italic s"> (7-50 IU/L)</content> Albumin 3.5-5.0 <content [facility] [Mass/volume] in styleCode="Bold"> Ayad hs Serum or Plasma Albumin Medical </content>4.9 Center G/DL<content styleCode="Italic s"> (3.5-5.0 G/DL)</content> ID Date Data Source HematologyRou.[id number] 10/29/2019 09:55:00 AM FÉLIX [facility] 0500 Name Value Range Interpretation Description Data Sup porting Code Source(s) Document(s ) Leukocytes 4.4-11.0 <content Saint [#/volume] in styleCode="Bold Julieta Blood by ">White Blood Medical Automated count Cell Count Center </content>9.79 KCUMM<content styleCode="Ital ics"> (4.4-11.0 KCUMM)</content > Hematocrit 41.0-53. <content Saint [Volume 0 styleCode="Bold [facility] Fraction] of ">Hematocrit Medical Blood by </content>47.5 Center Automated count %<content styleCode="Ital ics"> (41.0-53.0 %)</content> Hemoglobin 13.5-17. <content Saint [Mass/volume] in 5 styleCode="Bold Julieta Blood ">Hemoglobin Medical </content>16.0 Center G/DL<content styleCode="Ital ics"> (13.5-17.5 G/DL)</content> Erythrocytes 4.4-5.9 Above high <content Saint [#/volume] in normal styleCode="Bold Julieta Blood by ">Red Blood Medical Automated count Cell Count Center </content>6.14 MCUMM H<content styleCode="Ital ics"> (4.4-5.9 MCUMM)</content > Erythrocyte mean 80.0-100 <content Saint corpuscular .0 styleCode="Bold Julieta volume [Entitic ">Mean Medical volume] by Corpuscular Center Automated count Volume </content>77.4 FL<content styleCode="Ital ics"> (80.0-100.0 FL)</content> Platelets 130-400 Above high <content Saint [#/volume] in normal styleCode="Bold Julieta Blood by ">Platelet Medical Automated count Count Center </content>434 KCUMM H<content styleCode="Ital ics"> (130-400 KCUMM)</content > Erythrocyte mean 32.0-37. <content [facility] corpuscular 0 styleCode="Bold Julieta hemoglobin ">Mean Corpus. Medical concentration Hgb Center [Mass/volume] by Concentration Automated count (MCHC) </content>33.7 G/DL<content styleCode="Ital ics"> (32.0-37.0 G/DL)</content> Erythrocyte 11.5-14. Above high <content Saint distribution 5 normal styleCode="Bold Julieta width [Ratio] by ">Red Cell Medical Automated count Distribution Center Width </content>17.5 % H<content styleCode="Ital ics"> (11.5-14.5 %)</content> Erythrocyte mean 26.0-34. <content [facility] corpuscular 0 styleCode="Bold Julieta hemoglobin ">Mean Medical [Entitic mass] Corposcular Center by Automated Hemoglobin count </content>26.1 PG<content styleCode="Ital ics"> (26.0-34.0 PG)</content> UNK 0.0 <content Saint styleCode="Bold Julieta ">Nucleated Red Medical Blood Cell Center Count </content>0.00 KCUMM<content styleCode="Ital ics"> (0.0 KCUMM)</content > UNK 0 <content Saint styleCode="Bold Julieta ">Nucleated Red Medical Blood Cell Center </content>0.0 /100<content styleCode="Ital ics"> (0 /100)</content> Platelet mean 8.0-11.0 <content Saint volume [Entitic styleCode="Bold [facility] volume] in Blood ">Mean Platelet Medical by Automated Volume Center count </content>9.5 FL<content styleCode="Ital ics"> (8.0-11.0 FL)</content> ID Date Data Source GFR(Creatinine).[id number] 10/29/2019 09:55:00 AM FÉLIX [facility] 0-0500 Name Value Range Interpretation Code Description Data Jaky rce(s) Supporting Document(s ) UNK > 60 <content [facility] styleCode="Bold"> Medical Cent er EGFR </content>85 GFR<content styleCode="Italic s"> (> 60 GFR)</content> ID Date Data Source [facility].[id number] 10/29/2019 09:55:00 AM EST [facility] Name Value Range Interpretation Description Data Sup porting Code Source(s) Document(s ) Potassium 3.5-5.3 <content Saint [Moles/volume] in styleCode="Bold"> [facility] Serum or Plasma Potassium Medical </content>3.9 Center MEQ/L<content styleCode="Italic s"> (3.5-5.3 MEQ/L)</content> Sodium 137-145 <content Saint [Moles/volume] in styleCode="Bold"> [facility] Serum or Plasma Sodium Medical </content>140 Center MEQ/L<content styleCode="Italic s"> (137-145 MEQ/L)</content> Chloride 98-107 <content Saint [Moles/volume] in styleCode="Bold"> [facility] Serum or Plasma Chloride Medical </content>105 Center MEQ/L<content styleCode="Italic s"> (98-107 MEQ/L)</content> Glucose 74-106 <content Saint [Mass/volume] in styleCode="Bold"> Ayad hs Serum or Plasma Glucose Medical </content>93 Center MG/DL<content styleCode="Italic s"> (74-106 MG/DL)</content> Creatinine 0.5-1.3 <content Saint [Mass/volume] in styleCode="Bold"> Ayad hs Serum or Plasma Creatinine Medical </content>1.0 Center MG/DL<content styleCode="Italic s"> (0.5-1.3 MG/DL)</content> UNK 9-20 <content Saint styleCode="Bold"> Julieta BUN </content>20 Medical MG/DL<content Center styleCode="Italic s"> (9-20 MG/DL)</content> Carbon dioxide, 22-30 Below low <content Saint total normal styleCode="Bold"> Julieta [Moles/volume] in Carbon Dioxide Medical Serum or Plasma </content>18 Center MEQ/L L<content styleCode="Italic s"> (22-30 MEQ/L)</content> Calcium 8.4-10. <content Saint [Mass/volume] in 2 styleCode="Bold"> Ayad hs Serum or Plasma Calcium Medical </content>10.0 Center MG/DL<content styleCode="Italic s"> (8.4-10.2 MG/DL)</content> Alanine 7-50 <content [facility] aminotransferase styleCode="Bold"> Ayad hs [Enzymatic Alanine Medical activity/volume] Aminotransferase Center in Serum or Plasma (ALT) </content>18 IU/L<content styleCode="Italic s"> (7-50 IU/L)</content> UNK > 60 <content Saint styleCode="Bold"> Julieta EGFR </content>85 Medical GFR<content Center styleCode="Italic s"> (> 60 GFR)</content> Alkaline 38-126 <content Saint phosphatase styleCode="Bold"> Julieta [Enzymatic Alkaline Medical activity/volume] Phosphatase (ALP) Cente r in Serum or Plasma </content>81 IU/L<content styleCode="Italic s"> (38-126 IU/L)</content> Aspartate 17-59 <content [facility] aminotransferase styleCode="Bold"> Ayad hs [Enzymatic Aspartate Medical activity/volume] Aminotransferase Center in Serum or Plasma (AST) </content>24 IU/L<content styleCode="Italic s"> (17-59 IU/L)</content> Bilirubin.total 0.2-1.3 <content Saint [Mass/volume] in styleCode="Bold"> Ayad hs Serum or Plasma Bilirubin Total Medical </content>1.1 Center MG/DL<content styleCode="Italic s"> (0.2-1.3 MG/DL)</content> Albumin 3.5-5.0 <content Saint [Mass/volume] in styleCode="Bold"> Ayad hs Serum or Plasma Albumin Medical </content>4.9 Center G/DL<content styleCode="Italic s"> (3.5-5.0 G/DL)</content> ID Date Data Source Urinalysis.[id number] 08/23/2019 12:40:00 PM EDT [facility] 0 Name Value Range Interpretation Description Data Sup porting Code Source(s) Document(s ) Glucose NEGATIVE <content Saint [Mass/volume] styleCode="Franko [facility] in Urine by d">Urine Medical Test strip Glucose Center </content>NEGA TIVE MG/DL<content styleCode="Libby lics"> (NEGATIVE MG/DL)</conten t> Color of Urine YELLOW <content Saint styleCode="[facility] d">Color, Medical Urine Center </content>YELL OW <content styleCode="Libby lics"> (YELLOW )</content> UNK CLEAR <content Saint styleCode="[facility] d">Urine Medical Clarity Center </content>JI R <content styleCode="Libby lics"> (CLEAR )</content> pH of Urine by 4.5-8.0 <content [facility] Test strip [facility]">Urine pH Medical </content>7.5 Center <content styleCode="Libby lics"> (4.5-8.0 )</content> UNK NEGATIVE <content [facility]">Urine Medical Bilirubin Center </content>NEGA TIVE <content styleCode="Libby lics"> (NEGATIVE )</content> Specific 1.015-1.02 Below low normal <content Saint gravity of 5 styleCode="Franko Julieta Urine by Test d">Urine Medical strip Specific Center [place] </content>1.01 0 L<content styleCode="Libby lics"> (1.015-1.025 )</content> Hemoglobin NEGATIVE <content Saint [Presence] in styleCode="Franko Julieta Urine by Test d">Urine Blood Medical strip </content>NEGA Center TIVE <content styleCode="Libby lics"> (NEGATIVE )</content> Ketones NEGATIVE <content Saint [Mass/volume] styleCode="Franko Julieta in Urine by d">Urine Medical Test strip Ketone Center </content>TRAC E MG/DL<content styleCode="Libby lics"> (NEGATIVE MG/DL)</conten t> Urobilinogen 0.2-1.0 <content Saint [Units/volume] styleCode="Franko Julieta in Urine by d">Urine Medical Test strip Urobilinogen Center </content>0.2 MG/DL<content styleCode="Libby lics"> (0.2-1.0 MG/DL)</conten t> Protein NEGATIVE <content Saint [Mass/volume] styleCode="Franko Julieta in Urine by d">Urine Medical Test strip Protein Center </content>NEGA TIVE MG/DL<content styleCode="Libby lics"> (NEGATIVE MG/DL)</conten t> Leukocyte NEGATIVE <content Saint esterase styleCode="Franko Chungs [Presence] in d">Urine Medical Urine by Test Leukocyte Center strip </content>NEGA TIVE <content styleCode="Libby lics"> (NEGATIVE )</content> Nitrite NEGATIVE <content Saint [Presence] in styleCode="Franko Chungs Urine by Test d">Urine Medical strip Nitrite Center </content>NEGA TIVE <content styleCode="Libby lics"> (NEGATIVE )</content> ID Date Data Source Liver 08/23/2019 11:35:00 AM EDT [facility] Profile.[id number] Name Value Range Interpretation Description Data Sup porting Code Source(s) Document(s ) Aspartate 17-59 <content [facility] aminotransferase styleCode="Bold"> Ayad hs [Enzymatic Aspartate Medical activity/volume] Aminotransferase Center in Serum or Plasma (AST) </content>25 IU/L<content styleCode="Italic s"> (17-59 IU/L)</content> Alanine 7-50 <content [facility] aminotransferase styleCode="Bold"> Ayad hs [Enzymatic Alanine Medical activity/volume] Aminotransferase Center in Serum or Plasma (ALT) </content>26 IU/L<content styleCode="Italic s"> (7-50 IU/L)</content> Alkaline 38-126 <content Saint phosphatase styleCode="Bold"> Julieta [Enzymatic Alkaline Medical activity/volume] Phosphatase (ALP) Cente r in Serum or Plasma </content>67 IU/L<content styleCode="Italic s"> (38-126 IU/L)</content> Albumin 3.5-5.0 <content Saint [Mass/volume] in styleCode="Bold"> Ayad hs Serum or Plasma Albumin Medical </content>4.4 Center G/DL<content styleCode="Italic s"> (3.5-5.0 G/DL)</content> Bilirubin.total 0.2-1.3 <content Saint [Mass/volume] in styleCode="Bold"> Ayad hs Serum or Plasma Bilirubin Total Medical </content>0.9 Center MG/DL<content styleCode="Italic s"> (0.2-1.3 MG/DL)</content> ID Date Data Source HematologyRou.[id number] 08/23/2019 11:35:00 AM EDT [facility] 0400 Name Value Range Interpretation Description Data Sup porting Code Source(s) Document(s ) Leukocytes 4.4-11.0 <content Saint [#/volume] in styleCode="Bold [facility] Blood by ">White Blood Medical Automated count Cell Count Center </content>8.93 KCUMM<content styleCode="Ital ics"> (4.4-11.0 KCUMM)</content > Erythrocytes 4.4-5.9 <content Saint [#/volume] in styleCode="Bold [facility] Blood by ">Red Blood Medical Automated count Cell Count Center </content>5.77 MCUMM<content styleCode="Ital ics"> (4.4-5.9 MCUMM)</content > Hemoglobin 13.5-17. <content [facility] [Mass/volume] in 5 styleCode="Bold Julieta Blood ">Hemoglobin Medical </content>14.8 Center G/DL<content styleCode="Ital ics"> (13.5-17.5 G/DL)</content> Hematocrit 41.0-53. <content [facility] [Volume 0 styleCode="Bold Julieta Fraction] of ">Hematocrit Medical Blood by </content>44.7 Center Automated count %<content styleCode="Ital ics"> (41.0-53.0 %)</content> Erythrocyte mean 26.0-34. Below low normal <content [facility] corpuscular 0 styleCode="Bold Julieta hemoglobin ">Mean Medical [Entitic mass] Corposcular Center by Automated Hemoglobin count </content>25.6 PG L<content styleCode="Ital ics"> (26.0-34.0 PG)</content> Erythrocyte mean 32.0-37. <content [facility] corpuscular 0 styleCode="Bold Julieta hemoglobin ">Mean Corpus. Medical concentration Hgb Center [Mass/volume] by Concentration Automated count (MCHC) </content>33.1 G/DL<content styleCode="Ital ics"> (32.0-37.0 G/DL)</content> Erythrocyte mean 80.0-100 <content [facility] corpuscular .0 styleCode="Bold Julieta volume [Entitic ">Mean Medical volume] by Corpuscular Center Automated count Volume </content>77.5 FL<content styleCode="Ital ics"> (80.0-100.0 FL)</content> Platelet mean 8.0-11.0 <content [facility] volume [Entitic styleCode="Bold Julieta volume] in Blood ">Mean Platelet Medical by Automated Volume Center count </content>10.4 FL<content styleCode="Ital ics"> (8.0-11.0 FL)</content> Platelets 130-400 <content [facility] [#/volume] in styleCode="Bold Julieta Blood by ">Platelet Medical Automated count Count Center </content>361 KCUMM<content styleCode="Ital ics"> (130-400 KCUMM)</content > Erythrocyte 11.5-14. Above high <content [facility] distribution 5 normal styleCode="Bold Julieta width [Ratio] by ">Red Cell Medical Automated count Distribution Center Width </content>14.7 % H<content styleCode="Ital ics"> (11.5-14.5 %)</content> Neutrophils 36-66 Above high <content [facility] [#/volume] in normal styleCode="Bold Julieta Blood by ">Neutrophil Medical Automated count </content>74.6 Center % H<content styleCode="Ital ics"> (36-66 %)</content> Lymphocytes 24.0-44. Below low normal <content [facility] [#/volume] in 0 styleCode="Bold Julieta Blood by ">Lymphocyte Medical Automated count </content>16.3 Center % L<content styleCode="Ital ics"> (24.0-44.0 %)</content> UNK 1.6-7.3 <content [facility] styleCode="Bold Julieta ">Neutrophil Medical Count Center </content>6.65 KCUMM<content styleCode="Ital ics"> (1.6-7.3 KCUMM)</content > UNK 1.0-4.8 <content [facility] styleCode="Bold Julieta ">Lymphocyte Medical Count Center </content>1.46 KCUMM<content styleCode="Ital ics"> (1.0-4.8 KCUMM)</content > Monocytes 3.0-10.0 <content [facility] [#/volume] in styleCode="Bold Julieta Blood by ">Monocyte Medical Automated count </content>7.8 Center %<content styleCode="Ital ics"> (3.0-10.0 %)</content> Basophils 0.0-1.0 <content [facility] [#/volume] in styleCode="Bold Julieta Blood by ">Basophil Medical Automated count </content>0.7 Center %<content styleCode="Ital ics"> (0.0-1.0 %)</content> Eosinophils 0-5.0 <content [facility] [#/volume] in styleCode="Bold Julieta Blood by ">Eosinophil Medical Automated count </content>0.3 Center %<content styleCode="Ital ics"> (0-5.0 %)</content> UNK 0.0-0.6 <content [facility] styleCode="Bold Julieta ">Eosinophil Medical Count Center </content>0.03 KCUMM<content styleCode="Ital ics"> (0.0-0.6 KCUMM)</content > UNK 0.2-0.9 <content [facility] styleCode="Bold Julieta ">Monocyte Medical Count Center </content>0.70 KCUMM<content styleCode="Ital ics"> (0.2-0.9 KCUMM)</content > UNK 0 <content [facility] styleCode="Bold Julieta ">Nucleated Red Medical Blood Cell Center </content>0.0 /100<content styleCode="Ital ics"> (0 /100)</content> UNK 0.0-0.3 <content [facility] styleCode="Bold Julieta ">Basophil Medical Count Center </content>0.06 KCUMM<content styleCode="Ital ics"> (0.0-0.3 KCUMM)</content > UNK 0.0 <content [facility] styleCode="Bold Julieta ">Nucleated Red Medical Blood Cell Center Count </content>0.00 KCUMM<content styleCode="Ital ics"> (0.0 KCUMM)</content > UNK 0-0.1 <content [facility] styleCode="Bold Julieta ">Immature Medical Granulocyte Center Count </content>0.03 KCUMM<content styleCode="Ital ics"> (0-0.1 KCUMM)</content > UNK < 1 <content [facility] styleCode="Bold Julieta ">Immature Medical Granulocyte Center Ratio </content>0.3 %<content styleCode="Ital ics"> (< 1 %)</content> ID Date Data Source GFR(Creatinine).[id number] 08/23/2019 11:35:00 AM EDT [facility] 0-0400 Name Value Range Interpretation Code Description Data Jaky rce(s) Supporting Document(s ) UNK > 60 <content [facility] styleCode="Bold"> Medical Cent er EGFR </content>85 GFR<content styleCode="Italic s"> (> 60 GFR)</content> ID Date Data Source MROUTINECCSWATI.[id number] 08/23/2019 11:35:00 AM EDT [facility] -0400 Name Value Range Interpretation Description Data Sup porting Code Source(s) Document(s ) UNK >= 1.0 <content [facility] styleCode="Bold Medical ">AG Ratio Center </content>1.4 <content styleCode="Ital ics"> (>= 1.0 )</content> UNK 2.3-3.5 <content [facility] styleCode="Bold Medical ">Globulin Center </content>3.2 G/DL<content styleCode="Ital ics"> (2.3-3.5 G/DL)</content> Lipase 23-300 <content [facility] [Enzymatic styleCode="Bold Medical activity/vo ">Lipase Center lume] in </content>136 Serum or IU/L<content Plasma styleCode="Ital ics"> (23-300 IU/L)</content> Protein 6.3-8.2 <content [facility] [Mass/volum styleCode="Bold Medical e] in Serum ">Total Protein Center or Plasma </content>7.6 G/DL<content styleCode="Ital ics"> (6.3-8.2 G/DL)</content> ID Date Data Source [facility].[id number] 08/23/2019 11:35:00 AM EDT [facility] Name Value Range Interpretation Description Data Sup porting Code Source(s) Document(s ) Potassium 3.5-5.3 <content [facility] [Moles/volume] in styleCode="Bold"> Kong phs Serum or Plasma Potassium Medical </content>4.1 Center MEQ/L<content styleCode="Italic s"> (3.5-5.3 MEQ/L)</content> Chloride 98-107 <content [facility] [Moles/volume] in styleCode="Bold"> Kong phs Serum or Plasma Chloride Medical </content>105 Center MEQ/L<content styleCode="Italic s"> (98-107 MEQ/L)</content> Sodium 137-145 <content [facility] [Moles/volume] in styleCode="Bold"> [place] phs Serum or Plasma Sodium Medical </content>137 Center MEQ/L<content styleCode="Italic s"> (137-145 MEQ/L)</content> Calcium 8.4-10. <content [facility] [Mass/volume] in 2 styleCode="Bold"> Ayad hs Serum or Plasma Calcium Medical </content>9.7 Center MG/DL<content styleCode="Italic s"> (8.4-10.2 MG/DL)</content> Glucose 74-106 <content [facility] [Mass/volume] in styleCode="Bold"> Ayad hs Serum or Plasma Glucose Medical </content>102 Center MG/DL<content styleCode="Italic s"> (74-106 MG/DL)</content> UNK 9-20 <content [facility] styleCode="Bold"> Julieta BUN </content>11 Medical MG/DL<content Center styleCode="Italic s"> (9-20 MG/DL)</content> Creatinine 0.5-1.3 <content [facility] [Mass/volume] in styleCode="Bold"> Ayad hs Serum or Plasma Creatinine Medical </content>1.0 Center MG/DL<content styleCode="Italic s"> (0.5-1.3 MG/DL)</content> Carbon dioxide, 22-30 <content [facility] total styleCode="Bold"> Julieta [Moles/volume] in Carbon Dioxide Medical Serum or Plasma </content>23 Center MEQ/L<content styleCode="Italic s"> (22-30 MEQ/L)</content> Bilirubin.total 0.2-1.3 <content [facility] [Mass/volume] in styleCode="Bold"> Ayad hs Serum or Plasma Bilirubin Total Medical </content>0.9 Center MG/DL<content styleCode="Italic s"> (0.2-1.3 MG/DL)</content> UNK > 60 <content [facility] styleCode="Bold"> Julieta EGFR </content>85 Medical GFR<content Center styleCode="Italic s"> (> 60 GFR)</content> Alanine 7-50 <content [facility] aminotransferase styleCode="Bold"> Ayad hs [Enzymatic Alanine Medical activity/volume] Aminotransferase Center in Serum or Plasma (ALT) </content>26 IU/L<content styleCode="Italic s"> (7-50 IU/L)</content> Aspartate 17-59 <content [facility] aminotransferase styleCode="Bold"> Ayad hs [Enzymatic Aspartate Medical activity/volume] Aminotransferase Center in Serum or Plasma (AST) </content>25 IU/L<content styleCode="Italic s"> (17-59 IU/L)</content> Alkaline 38-126 <content [facility] phosphatase styleCode="Bold"> Julieta [Enzymatic Alkaline Medical activity/volume] Phosphatase (ALP) Cente r in Serum or Plasma </content>67 IU/L<content styleCode="Italic s"> (38-126 IU/L)</content> Albumin 3.5-5.0 <content [facility] [Mass/volume] in styleCode="Bold"> Ayad hs Serum or Plasma Albumin Medical </content>4.4 Center G/DL<content styleCode="Italic s"> (3.5-5.0 G/DL)</content> Procedure Social History Code Duration Value Status Description Data Source(s ) Caffeine Use 11/19/2019 completed NEXTGEN ([place] Details 12:00:[address] [facility]) Smoking 11/19/2019 Unknown if completed Unknown if ever NEXTGEN ( [facility] 12:00:00 AM EST ever smoked smoked [facility]) Smoking 10/29/2019 Denies Ever completed Denies Ever [place] 04:57:00 PM EST Smoked Smoked Medical C enter Smoking 10/29/2019 Denies Ever completed Denies Ever [place] 09:38:00 AM EST Smoked Smoked Medical C enter Smoking 10/29/2019 Denies Ever completed Denies Ever [facility] 09:22:00 AM EST Smoked Smoked Medical C enter Smoking 10/29/2019 Denies Ever completed Denies Ever [facility] 09:22:00 AM EST Smoked Smoked Medical C enter Smoking 08/23/2019 Denies Ever completed Denies Ever [facility] 02:21:00 PM EDT Smoked Smoked Medical C enter Smoking 08/23/2019 Denies Ever completed Denies Ever [place] 11:24:00 AM EDT Smoked Smoked Medical C enter Smoking 08/23/2019 Denies Ever completed Denies Ever [place] 11:05:00 AM EDT Smoked Smoked Medical C enter Vital Signs ID Date Data Source UNK Name Value Range Interpretation Code Description Data Source(s) Diastolic blood 89 mmHg 89 mmHg [facility] Systolic blood 128 mmHg 128 mmHg [facility] Respiratory rate 18 bpm 18 bpm [facility] Heart rate 75 bpm 75 bpm [facility] Di[facility] blood 89 mmHg 89 mmHg [facility] Systolic blood 133 mmHg 133 mmHg [facility] Respiratory rate 18 bpm 18 bpm [facility] Heart rate 79 bpm 79 bpm [facility] Body temperature 98.1 Fahrenheit 98.1 [facility] Body weight 244 lbs 244 lbs [facility] Diastolic blood 101 mmHg 101 mmHg [facility] Systolic blood 136 mmHg 136 mmHg [facility] Respiratory rate 18 bpm 18 bpm [facility] Heart rate 83 bpm 83 bpm [facility] Body temperature 97.1 [facility] Body weight 244 lbs 244 lbs [facility] Diastolic blood 96 mmHg 96 mmHg [facility] Systolic blood 133 mmHg 133 mmHg [facility] Respiratory rate 18 bpm 18 bpm [facility] Heart rate 80 bpm 80 bpm [facility] Body temperature 97.1 [facility] 97.[facility] Diastolic blood 100 mmHg 100 mmHg [facility] Systolic blood 138 mmHg 138 mmHg [facility] Respiratory rate 18 bpm 18 bpm [facility] Heart rate 79 bpm 79 bpm [facility] Diastolic blood 93 mmHg 93 mmHg [facility] Systolic blood 138 mmHg 138 mmHg [facility] Respiratory rate 18 bpm 18 bpm [facility] Heart rate 75 bpm 75 bpm [facility] Diastolic blood 94 mmHg 94 mmHg [facility] Systolic blood 140 mmHg 140 mmHg [facility] Heart rate 77 bpm 77 bpm [facility] Diastolic blood 93 mmHg 93 mmHg [facility] Systolic blood 133 mmHg 133 mmHg [facility] Respiratory rate 18 bpm 18 bpm [facility] Heart rate 76 bpm 76 bpm [facility] Body temperature 97.4 Fahrenheit 97.4 Fahrenhei t [facility] Diastolic blood 103 mmHg 103 mmHg [facility] Systolic blood 153 mmHg 153 mmHg [facility] Respiratory rate 15 bpm 15 bpm [facility] Heart rate 93 bpm 93 bpm [facility] Diastolic blood 100 mmHg 100 mmHg [facility] Systolic blood 152 mmHg 152 mmHg [facility] Respiratory rate 20 bpm 20 bpm [facility] Heart rate 94 bpm 94 bpm [facility] Body temperature 97.1 Fahrenheit 97.1 Fahrenhei t [facility] Diastolic blood 100 mmHg 100 mmHg [facility] Systolic blood 144 mmHg 144 mmHg [facility] Respiratory rate 20 bpm 20 bpm [facility] Heart rate 81 bpm 81 bpm [facility] Diastolic blood 90 mmHg 90 mmHg [facility] Systolic blood 129 mmHg 129 mmHg [facility] Respiratory rate 20 bpm 20 bpm [facility] Heart rate 89 bpm 89 bpm [facility] Body temperature 96.9 Fahrenheit 96.9 Fahrenhei t [facility] Diastolic blood 81 mmHg 81 mmHg [facility] Systolic blood 121 mmHg 121 mmHg [facility] Heart rate 70 bpm 70 bpm [facility] Diastolic blood 86 mmHg 86 mmHg [facility] Systolic blood 132 mmHg 132 mmHg [facility] Respiratory rate 18 bpm 18 bpm [facility] Heart rate 68 bpm 68 bpm [facility] Body temperature 96.5 Fahrenheit 96.5 Fahrenhei t [facility] Diastolic blood 82 mmHg 82 mmHg [facility] Systolic blood 118 mmHg 118 mmHg [facility] Respiratory rate 18 bpm 18 bpm [facility] Heart rate 74 bpm 74 bpm [facility] Diastolic blood 87 mmHg 87 mmHg [facility] Systolic blood 116 mmHg 116 mmHg [facility] Respiratory rate 18 bpm 18 bpm [facility] Heart rate 60 bpm 60 bpm [facility] Diastolic blood 94 mmHg 94 mmHg [facility] Systolic blood 128 mmHg 128 mmHg [facility] Heart rate 62 bpm 62 bpm [facility] Body weight 204 lbs 204 lbs [facility] Diastolic blood 87 mmHg 87 mmHg [facility] Systolic blood 136 mmHg 136 mmHg [facility] Respiratory rate 18 bpm 18 bpm [facility] Heart rate 71 bpm 71 bpm [facility] Body temperature 98.7 Fahrenheit 98.7 Fahrenhei t [facility] Diastolic blood 89 mmHg 89 mmHg [facility] Systolic blood 129 mmHg 129 mmHg [facility] Heart rate 63 bpm 63 bpm [facility] Diastolic blood 89 mmHg 89 mmHg [facility] Systolic blood 118 mmHg 118 mmHg [facility] Respiratory rate 18 bpm 18 bpm [facility] Heart rate 54 bpm 54 bpm [facility] Body temperature 96.7 Fahrenheit 96.7 Fahrenhei t [facility] Diastolic blood 105 mmHg 105 mmHg [facility] Systolic blood 158 mmHg 158 mmHg [facility] Respiratory rate 18 bpm 18 bpm [facility] Heart rate 92 bpm 92 bpm [facility] Diastolic blood 109 mmHg 109 mmHg [facility] Systolic blood 152 mmHg 152 mmHg [facility] Respiratory rate 18 bpm 18 bpm [facility] Heart rate 69 bpm 69 bpm [facility] Body temperature 96.7 Fahrenheit 96.7 Fahrenhei t [facility] Heart rate 104 /min 104 /min [facility] Diastolic blood 104 mm[Hg] 104 mm[Hg] [facility] [place] Systolic blood 147 mm[Hg] 147 mm[Hg] [facility] [place] Body temperature 36.010460 Pam 36.007941 Pam [facility] Respiratory rate 20 /min 20 /min [facility] Heart rate 98 /min 98 /min [facility] Diastolic blood 93 mm[Hg] 93 mm[Hg] [facility] [place] Systolic blood 134 mm[Hg] 134 mm[Hg] [facility] [place] Systolic blood 136 mm[Hg] 136 mm[Hg] [facility] Center Heart rate 84 /min 84 /min [facility] Diastolic blood 93 mm[Hg] 93 mm[Hg] [facility] [place] Body temperature 36.072645 Pam 36.444442 Pam [facility] Respiratory rate 18 /min 18 /min [facility] Heart rate 75 /min 75 /min [facility] Diastolic blood 83 mm[Hg] 83 mm[Hg] [facility] pressure Medical Center Systolic blood 146 mm[Hg] 146 mm[Hg] [facility] Heart rate 95 /min 95 /min [facility] Diastolic blood 91 mm[Hg] 91 mm[Hg] [facility] pressure Medical Center Systolic blood 138 mm[Hg] 138 mm[Hg] [facility] Body weight 97.230253 kg 97.486326 kg [facility] [place] Body temperature 35.015152 Pam 35.169828 Pam [facility] Respiratory rate 20 /min 20 /min [facility] Body temperature 36.588706 Pam 36.641701 [facility] Respiratory rate 20 /min 20 /min [facility] Respiratory rate 18 /min 18 /min [facility] Body temperature 36.738523 Pam 36.304281 Pam [facility] Body weight 98.768504 kg 98.388764 kg [facility] [place] Body temperature 36.183250 Pam 36.444358 Pam [facility] Respiratory rate 18 /min 18 /min [facility] Heart rate 121 /min 121 /min [facility] Diastolic blood 84 mm[Hg] 84 mm[Hg] [facility] Center Systolic blood 141 mm[Hg] 141 mm[Hg] [facility] Body height 177.822900 cm 177.046216 cm [facility] Body mass index 31.20 kg/m2 31.20 kg/m2 [facility] (BMI) [Ratio] Medical Center Oxygen 97 % 97 % [facility] saturation in Medical Arterial blood Center by Pulse oximetry Body temperature 36.599463 Pam 36.863751 Pam [facility] Respiratory rate 18 /min 18 /min [facility] Heart rate 99 /min 99 /min [facility] Diastolic blood 69 mm[Hg] 69 mm[Hg] [facility] pressure Medical Center Systolic blood 158 mm[Hg] 158 mm[Hg] [facility] Oxygen 98 % 98 % [facility] saturation in Medical Arterial blood Center by Pulse oximetry Body temperature 36.334244 Pam 36.550300 Pam [facility] Respiratory rate 18 /min 18 /min [facility] Heart rate 113 /min 113 /min [facility] Diastolic blood 95 mm[Hg] 95 mm[Hg] [facility] pressure Medical Center Systolic blood 156 mm[Hg] 156 mm[Hg] [facility] Body weight 108.338808 kg 108.290212 kg [facility] Medical Center Oxygen 96 % 96 % [place] saturation in Medical Arterial blood Center by Pulse oximetry Body height 177.350201 cm 177.380642 cm [facility] Body mass index 34.4 kg/m2 34.4 kg/m2 [facility] (BMI) [Ratio] Medical Center Body temperature 36.150381 Pam 36.047189 Pam [facility] Respiratory rate 19 /min 19 /min [facility] Heart rate 110 /min 110 /min [facility] Diastolic blood 97 mm[Hg] 97 mm[Hg] [facility] Center Systolic blood 161 mm[Hg] 161 mm[Hg] [facility] Body temperature 36.960624 Pam 36.098179 Pam [facility] Respiratory rate 18 /min 18 /min [facility] Oxygen 99 % 99 % [facility] saturation in Medical Arterial blood Center by Pulse oximetry Heart rate 66 /min 66 /min [facility] Diastolic blood 85 mm[Hg] 85 mm[Hg] [facility] Medical Center Systolic blood 134 mm[Hg] 134 mm[Hg] [facility] [place] Body weight 99.915603 kg 99.469379 kg [facility] Measured Medical Center Body temperature 36.758983 Pam 36.762131 Pam [facility] Respiratory rate 17 /min 17 /min [facility] Oxygen 96 % 96 % [facility] saturation in Medical Arterial blood Center by Pulse oximetry Heart rate 57 /min 57 /min [facility] Body height 177.874033 cm 177.244776 cm [facility] Diastolic blood 80 mm[Hg] 80 mm[Hg] [facility] pressure Medical Center Systolic blood 132 mm[Hg] 132 mm[Hg] [facility] pressure Medical Center Body mass index 31.5 kg/m2 31.5 kg/m2 [facility] (BMI) [Ratio] Medical Center ID Date Data Source [id number] 05/30/2020 12:54:24 PM EDT [facility] Name Value Range Interpretation Code Description Data Source(s) Body weight Measured 244 lb 244 lb [facility] ID Date Data Source [id number] 06/02/2020 04:23:04 PM EDT [facility] Name Value Range Interpretation Code Description Data Source(s) Body weight Measured 244 lb 244 lb [facility] ID Date Data Source [id number] 05/30/2020 04:32:17 PM EDT [facility] Value Range Interpretation Code Description Data Source(s) Body weight Measured 244 lb 244 lb [facility] ID Date Data Source [id number] 04/25/2020 10:41:47 PM EDT [facility] Name Value Range Interpretation Code Description Data Source(s) Body weight Measured 244 lb 244 lb [facility] Body weight Measured 204 lb 204 lb [facility] Patient Treatment Plan of Care Planned Activity Planned Date Details Description Data Source (s) duloxetine 60 MG Delayed 04/05/2020 12:00:00 NEXTGEN ([facility] Release Oral Capsule AM [facility]) Mirtazapine 15 MG Oral 04/05/2020 12:00:00 NEXTGEN ([facility] Tablet [Remeron] AM [facility]) duloxetine 60 MG Delayed 03/13/2020 12:00:00 NEXTGEN ([facility] Release Oral Capsule AM [facility]) Mirtazapine 15 MG Oral 03/13/2020 12:00:00 NEXTGEN ([facility] Tablet [Remeron] AM [facility]) Mirtazapine 15 MG Oral 02/03/2020 12:00:00 NEXTGEN ([facility] Tablet [Remeron] AM [facility]) duloxetine 60 MG Delayed 02/03/2020 12:00:00 NEXTGEN ([facility] Release Oral Capsule [facility] [[facility] [place]) Trazodone Hydrochloride 01/14/2020 12:00:00 NEXTGEN ([facility] 100 MG Oral Tablet AM [facility]) aripiprazole 10 MG Oral 01/14/2020 12:00:00 NEXTGEN ([facility] Tablet [Abilify] [facility]) duloxetine 60 MG Delayed 01/14/2020 12:00:00 NEXTGEN ([facility] Release Oral Capsule [facility]) Mirtazapine 15 MG Oral 12/17/2019 12:00:00 NEXTGEN ([facility] Tablet [Remeron] [facility]) duloxetine 60 MG Delayed 12/17/2019 12:00:00 NEXTGEN ([facility] Release Oral Capsule [facility]) aripiprazole 10 MG Oral 12/17/2019 12:00:00 NEXTGEN ([facility] Tablet [Abilify] [facility]) Mirtazapine 15 MG Oral 12/03/2019 12:00:00 NEXTGEN ([facility] Tablet [Remeron] [facility]) duloxetine 60 MG Delayed 12/03/2019 12:00:00 NEXTGEN ([facility] Release Oral Capsule [facility] [[facility] [place]) aripiprazole 10 MG Oral 12/03/2019 12:00:00 NEXTGEN ([facility] Tablet [Abilify] [facility]) aripiprazole 10 MG Oral 11/26/2019 12:00:00 NEXTGEN ([facility] Tablet [Abilify] [facility]) duloxetine 60 MG Delayed 11/26/2019 12:00:00 NEXTGEN ([facility] Release Oral Capsule [facility] [[facility] [place]) duloxetine 60 MG Delayed 11/19/2019 12:00:00 NEXTGEN ([facility] Release Oral Capsule [facility]) aripiprazole 10 MG Oral 11/19/2019 12:00:00 NEXTGEN ([facility] Tablet [Abilify] [facility]) duloxetine 30 MG Delayed 11/19/2019 12:00:00 NEXTGEN ([facility] Release Oral Capsule [facility] [[facility]] [place]) 24 HR metoprolol 11/12/2019 12:00:00 NEXT GEN ([facility] succinate 100 MG Extended AM [facility] Release Oral Tablet [facility]) Amlodipine 10 MG Oral 11/12/2019 12:00:00 NEXTGEN ([facility] Tablet [facility]) Omeprazole 40 MG Delayed 11/12/2019 12:00:00 NEXTGEN ([facility] Release Oral Capsule [facility]) Naltrexone hydrochloride 11/12/2019 12:00:00 NEXTGEN ([facility] 50 MG Oral Tablet [facility]) aripiprazole 10 MG Oral 11/12/2019 12:00:00 NEXTGEN ([facility] Tablet [Abilify] [facility]) duloxetine 30 MG Delayed 11/12/2019 12:00:00 [facility] [[facility]] [place])
[2020-08-28] MEDS ORDERED: ACETAMINOPHEN 325 MG TABLET (FP) PO ONE (11:06)
--- NOTE | 2020-08-28 11:15 | PDOC ---
History of Present Illness - General Chief Complaint: Pain Stated Complaint: ABD PAIN Time Seen by Provider: 08/28/20 10:56 History Source: Patient Exam Limitations: No Limitations - History of Present Illness Initial Comments: 08/28/20 11:09 49 yo male h/o renal ca, partial nephrectomy 10 yrs ago, htn borderline diabetes, chronic back pain depression, recent diagnosis of diverticulitis 1 week ago currently on abx p/w L sided abdominal pain, constant, non-radiating, sharp x3 days. States has been taking abx as rxed. Initially felt better but then 3 days ago abd pain returned and was worse. Also reports nausea but no vomiting. Endorses 3-4 episodes of diarrhea/day. Denies fevers or suspicious food intake. Denies urinary complaints. Denies cough, CP or SOB. Past History - Medical History Allergies/Adverse Reactions: Allergies Allergy/AdvReac Type Severity Reaction Status Date / Time codeine Allergy Mild Itching Verified 02/05/20 18:02 Home Medications: Ambulatory Orders Amlodipine Besylate [Norvasc] 10 mg PO DAILY 11/25/11 Omeprazole 40 mg PO DAILY 11/25/11 Rosuvastatin Calcium [Crestor] 10 mg PO DAILY #0 tablet 11/27/11 Aspirin 81 mg PO DAILY 02/05/20 Metoprolol Succinate [Toprol XL -] 100 mg PO DAILY 02/05/20 Mirtazapine 15 mg PO HS 02/05/20 Ciprofloxacin [Cipro -] 500 mg PO Q12H #28 tablet 08/21/20 metroNIDAZOLE [Flagyl -] 500 mg PO TID 14 Days #42 tablet 08/21/20 COPD: No GI Disorders: Yes (ACID REFLUX) HTN: Yes - Immunization History Immunization Up to Date: Yes - Psycho-Social/Smoking History Smoking Status: No Smoking History: Never smoked Have you smoked in the past 12 months: No Number of Cigarettes Smoked Daily: 0 Information on smoking cessation initiated: No 'Breaking Loose' booklet given: 08/21/20 - Substance Abuse Hx (Audit-C & DAST Scrn) How often the patient has a drink containing alcohol: Never Score: In Men: 4 or > Positive; In Women: 3 or > Positive: 0 Screen Result (Pos requires Nsg. Audit-10AR): Negative In the last yr the pt used illegal drug/Rx for NonMed reason: No Score: Yes response is considered Positive: 0 Screen Result (Positive result requires Nsg. DAST-10): Negative Review of Systems - Review of Systems Able to Perform ROS?: Yes Comments:: 08/28/20 11:11 GENERAL/CONSTITUTIONAL: No fever or chills. No weakness. HEAD, EYES, EARS, NOSE AND THROAT: No change in vision. No ear pain or discharge. No sore throat. CARDIOVASCULAR: No chest pain or shortness of breath. RESPIRATORY: No cough, wheezing, or hemoptysis. GASTROINTESTINAL: + nausea, no vomiting, + diarrhea, no constipation. GENITOURINARY: No dysuria, frequency, or change in urination. MUSCULOSKELETAL: No joint or muscle swelling or pain. No neck or back pain. SKIN: No rash. NEUROLOGIC: No headache, vertigo, loss of consciousness, or change in strength/sensation. ENDOCRINE: No increased thirst. No abnormal weight change. HEMATOLOGIC/LYMPHATIC: No anemia, easy bleeding, or history of blood clots. ALLERGIC/IMMUNOLOGIC: No hives or skin allergy. *Physical Exam - Vital Signs Last Vital Signs Temp Pulse Resp BP Pulse Ox 98.4 F 81 17 151/105 H 96 08/28/20 10:52 08/28/20 10:52 08/28/20 10:52 08/28/20 10:52 08/28/20 10:52 - Physical Exam 08/28/20 11:11 GENERAL: Well appearing, in no acute distress HEENT: NCAT, conjunctiva not injected, MMM, EOMI NECK: Normal ROM, supple LUNGS: CTAB. Good air entry. No wheezes, No Rhonchi and no crackles HEART: RRR, + s1 s2 ABDOMEN: Soft, obese limiting exam, +LLQ ttp, no rebound, no guarding, no palpable masses EXTREMITIES: Warm and well perfused. No LE edema. FROM. No clubbing or cyano sis. No cords, erythema, or tenderness NEUROLOGICAL: Aox3, Speech fluent, face symmetric. Sensation grossly intact to light touch. Ambulatory with steady gait. Strength intact. No focal deficits. SKIN: Warm, dry, normal turgor, no rashes or lesions noted. ED Treatment Course - LABORATORY CBC & Chemistry Diagram: 08/28/20 11:00 08/28/20 11:00 Medical Decision Making - Medical Decision Making 08/28/20 11:13 49 yo M recent diagnosis of diverticulitis on abx returns with abd pain and diarrhea, found to have LLQ ttp on exam but otherwise non-toxic appearing and fairly comfortable. Spoke with his PMD who told the patient to come to the ED today for repeat blood work and CT scan. Possible abscess formation or perforation vs. medication side effect (possible diarrhea and abd discomfort from abx use). Much lower suspicion for obstruction or kidney stones. Plan: -labs -urine -CT a/p -pain control as needed -reassess This clinical encounter is taking place during a federal and state health care emergency attributable to the novel [place] Virus pandemic. The [place] of the Department of Health and Human Services has declared, pursuant to the Public Health Service Act 319F-3 (42 U.S.C. 247d-6d), that a covered persons activities related to medical countermeasures against COVID-19 will be immune from liability under Federal and State law. 08/28/20 16:42 CT findings with possible epiploic appendigitis. Patient with normal WBC, tolerating PO ambulatory in ED, afebrile and very well appearing so will d/c with recommendations for NSAID at home as needed for pain and surgery f/u Discharge - Discharge Information Problems reviewed: Yes Clinical Impression/Diagnosis: Epiploic appendagitis Condition: Stable Disposition: HOME - Admission No - Follow up/Referral Referrals: Fredi Hampton MD [Staff Physician] - - Patient Discharge Instructions Patient Printed Discharge Instructions: DI for Abdominal Pain-Adult Additional Instructions: Your labs did not show any concerning findings. Your CT scan had findings of inflammation of the colon. You should continue with your antibiotics as previously prescribed and you can take motrin a iris as needed for pain. You should follow up wtih your PMD and surgery. Return to the ED for new or worsening symptoms. - Post Discharge Activity
[2020-08-28] MEDS ORDERED: ACETAMINOPHEN 325 MG TABLET (FP) ONE (11:32)
[2020-08-28 11:39] LABS: BASO % 1.3 % (0-2.0); EOS % 3.1 % (0-4.5); HEMATOCRIT 43.2 % (35.4-49); HEMOGLOBIN 13.6 GM/dl (11.7-16.9); LYMPH % 13.3 % (8-40); MCH 25.3 pg (25.7-33.7); MCHC 31.6 g/dl (32.0-35.9); MEAN PLT VOLUME 8.6 fl (7.5-11.1); MONO % 7.3 % (3.8-10.2); PLATELET COUNT 378 K/MM3 (134-434); RDW 16.4 % (11.9-15.9); WHITE BLOOD COUNT 9.9 K/mm3 (4.0-10.8)
[2020-08-28 11:55] LABS: ALBUMIN 3.9 g/dl (3.4-5.0); BILIRUBIN,TOTAL 0.5 mg/dl (0.2-1); CALCIUM 8.8 mg/dl (8.5-10); CREATININE 1.1 mg/dl (0.55-1.3); POTASSIUM 4.2 mmol/L (3.5-5.1); TOT PROT 6.5 g/dl (6.4-8.2)
[2020-08-28] MEDS ORDERED: IBUPROFEN 400 MG TABLET (FP) PO ONE ×2 (16:48→16:57)
[2020-08-28 16:58] VITALS: BP 137/90; PULSE 92
== END 2020-08-28 17:01 | disposition home or self-care (01) ==
LOC: FER 10:49
DX: K38.8 Other specified diseases of appendix (principal)
CPT/HCPCS: 36415; 74177-TC; 80053; 81003; 83690; 85025; 87086; 99285-25; Q9967

== ENCOUNTER 2023-03-11 04:15 | Day surgery (SDC) | payer OTHER ==
[2023-03-10 10:11] VITALS: BMI 34.0
[2023-03-11] MEDS ORDERED: BUPIVACAINE HCL/PF 0.75% 10 ML VIAL ONE (07:46)
[2023-03-11] MEDS ORDERED: LIDOCAINE HCL/PF 1% SDV 5ML VIAL ONE (07:46)
[2023-03-11 12:54] VITALS: RESP 16
[2023-03-11] MEDS ORDERED: LIDOCAINE 1% P/F 10 MG/ML VIAL INF ONE (13:24)
[2023-03-11] MEDS ORDERED: BUPIVACAINE HCL/PF 0.5% (5 MG/ML) 30 ML VIAL IJ ONE ×2 (13:29)
[2023-03-11 13:58] VITALS: BP 129/95; PULSE 66; TEMP 97.8
[2023-03-11] MEDS ORDERED: ACETAMINOPHEN 500 MG TABLET (FP) PO PRN (14:16)
== END 2023-03-11 14:15 | disposition home or self-care (01) ==
LOC: JASU-SURG 04:15
PROVIDERS: ATTEND Pain Medicine Pain Medicine
PROC: 3E0T33Z Introduction of Anti-inflammatory into Peripheral Nerves and Plexi, Percutaneous Approach (ICD-10-PCS; 2023-03-11)
PROC: 3E0T3BZ Introduction of Anesthetic Agent into Peripheral Nerves and Plexi, Percutaneous Approach (ICD-10-PCS; principal; 2023-03-11 14:00)
DX: M47.816 Spondylosis without myelopathy or radiculopathy, lumbar region (principal)
CPT/HCPCS: 76000-TC-FY

== ENCOUNTER 2023-04-15 04:30 | Day surgery (SDC) | payer OTHER ==
[2023-04-15] MEDS ORDERED: LIDOCAINE HCL/PF 1% SDV 5ML VIAL ONE (07:43)
[2023-04-15] MEDS ORDERED: BUPIVACAINE HCL/PF 0.75% 10 ML VIAL ONE (07:43)
[2023-04-15] MEDS ORDERED: DEXAMETHASONE SOD PHOSPHATE 10 MG/1 ML VIAL ONE (07:44)
[2023-04-15] MEDS ORDERED: ACETAMINOPHEN 500 MG TABLET (FP) PO PRN (13:28)
[2023-04-15 13:59] VITALS: BMI 34.4
[2023-04-15] MEDS ORDERED: DEXAMETHASONE SOD PHOSPHATE 10 MG/1 ML VIAL IVPUSH ONE (14:59)
[2023-04-15] MEDS ORDERED: IOHEXOL 180 MG/1 ML ML IJ ONE (14:59)
[2023-04-15] MEDS ORDERED: LIDOCAINE HCL 1% PRESERVATIVE FREE - 30ML VIAL IJ ONE (14:59)
[2023-04-15 15:29] VITALS: BP 130/91; PULSE 77; RESP 16; TEMP 99.1
== END 2023-04-15 15:55 | disposition home or self-care (01) ==
LOC: JASU-SURG 04:30
PROVIDERS: ATTEND Pain Medicine Pain Medicine
PROC: 3E0R3BZ Introduction of Anesthetic Agent into Spinal Canal, Percutaneous Approach (ICD-10-PCS; 2023-04-15)
PROC: 3E0R33Z Introduction of Anti-inflammatory into Spinal Canal, Percutaneous Approach (ICD-10-PCS; principal; 2023-04-15 15:15)
DX: M54.16 Radiculopathy, lumbar region (principal)
CPT/HCPCS: 76000-TC-FY; J1100